=== PATIENT | female | born 1945 | race Caucasian/White ===

== ENCOUNTER → 2021-08-10 16:49 | Outpatient (CLI) | payer MEDICARE, OTHER, SELFPAY | PROVIDERS: Visit Provider Internal Medicine | DX: E03.9 Hypothyroidism, unspecified (principal) | CPT/HCPCS: 84443 ==

== ENCOUNTER → 2022-01-22 12:06 | Outpatient (CLI) | payer MEDICARE, OTHER, SELFPAY ==
[2022-01-22 13:24] LABS: Basophils % 0.6 % (0.1-2.0); Eosinophils # 0.2 K/mm3 (0.0-0.4); Eosinophils % 2.8 % (0.1-12.0); Hematocrit 37.1 % (37.0-47.0); Hemoglobin 11.8 g/dL (12.2-16.2); Lymphocytes # 0.9 K/mm3 (0.7-4.5); Lymphocytes % 15.4 % (10-50); Mean Corpuscular HGB Conc 31.8 g/dL (31.8-35.4); Mean Corpuscular Hemoglobin 29.8 pg (27.0-31.2); Mean Corpuscular Volume 93.6 fl (81-99); Mean Platelet Volume 8.4 fl (7.4-10.4); Monocytes # 0.4 K/mm3 (0.1-1.0); Monocytes % 6.6 % (1.7-9.3); Neutrophils # 4.4 K/mm3 (1.8-7.8); Neutrophils % 74.6 % (37.0-80.0); Platelet Count 136 K/mm3 (142-424); Red Blood Count 3.97 M/mm3 (4.20-5.40); Red Cell Distribution Width 16.1 % (11.5-17.5); White Blood Count 5.9 K/mm3 (4.8-10.8)
[2022-01-22 13:53] LABS: Alanine Aminotransferase 12 U/L (12-78); Albumin Level 3.7 g/dl (3.5-5.0); Albumin/Globulin Ratio 1.2 (1.1-1.8); Alkaline Phosphatase 90 U/L (38-126); Anion Gap 11.3 mEq/L (5-15); Aspartate Amino Transferase 24 U/L (14-36); Bilirubin,Total 0.4 mg/dl (0.2-1.3); Blood Urea Nitrogen 20 mg/dl (7-17); Carbon Dioxide 35 mmol/L (22.0-30.0); Chloride 100 mmol/L (98-107); Chol/HDL Ratio 4.2 (1-3.5); Cholesterol 151 mg/dl (140-200); Estimated Glomerular Filt Rate 61 ml/min (>60); GFR (African American) 73 ML/MIN (>60); Glucose 95 mg/dl (74-100); HDL Cholesterol 36 mg/dl (40-60); Potassium 4.3 mmoL/L (3.5-5.1); Sodium 142 mmol/L (136-145); Total Protein,Serum 6.7 g/dl (6.3-8.2); Triglycerides 128 mg/dl (30-150); VLDL Cholesterol 26 mg/dL (0-40)
[2022-01-22 14:23] LABS: Thyroid Stimulating Hormone 0.19 uIU/mL (0.465-4.68)
== END ==
PROVIDERS: PCP Internal Medicine; Visit Provider Internal Medicine
DX: I10 Essential (primary) hypertension (principal); E03.9 Hypothyroidism, unspecified; I27.20 Pulmonary hypertension, unspecified; E53.8 Deficiency of other specified B group vitamins
CPT/HCPCS: 80053; 80061; 84443; 85025

== ENCOUNTER → 2022-05-07 16:43 | Outpatient (CLI) | payer MEDICARE, OTHER, SELFPAY ==
[2022-05-07 17:24] LABS: Alanine Aminotransferase 10 U/L (12-78); Albumin Level 3.9 g/dl (3.5-5.0); Albumin/Globulin Ratio 1.2 (1.1-1.8); Alkaline Phosphatase 101 U/L (38-126); Anion Gap 15.4 mEq/L (5-15); Aspartate Amino Transferase 22 U/L (14-36); Bilirubin,Total 0.4 mg/dl (0.2-1.3); Blood Urea Nitrogen 25 mg/dl (7-17); Calcium 8.2 mg/dl (8.4-10.2); Carbon Dioxide 31 mmol/L (22.0-30.0); Chloride 99 mmol/L (98-107); Estimated Glomerular Filt Rate 44 ml/min (>60); GFR (African American) 53 ML/MIN (>60); Globulin 3.2 g/dL (1.3-3.2); Glucose 101 mg/dl (74-100); Potassium 4.4 mmoL/L (3.5-5.1); Sodium 141 mmol/L (136-145); Total Protein,Serum 7.1 g/dl (6.3-8.2)
[2022-05-07 17:35] LABS: Basophils % 0.6 % (0.1-2.0); Eosinophils # 0.3 K/mm3 (0.0-0.4); Hematocrit 37.8 % (37.0-47.0); Hemoglobin 11.7 g/dL (12.2-16.2); Lymphocytes # 1.5 K/mm3 (0.7-4.5); Lymphocytes % 20.8 % (10-50); Mean Corpuscular HGB Conc 31.1 g/dL (31.8-35.4); Mean Corpuscular Hemoglobin 29.4 pg (27.0-31.2); Mean Corpuscular Volume 94.8 fl (81-99); Mean Platelet Volume 8.1 fl (7.4-10.4); Monocytes # 0.4 K/mm3 (0.1-1.0); Monocytes % 5.4 % (1.7-9.3); Neutrophils # 4.8 K/mm3 (1.8-7.8); Neutrophils % 69.1 % (37.0-80.0); Platelet Count 154 K/mm3 (142-424); Red Blood Count 3.99 M/mm3 (4.20-5.40); Red Cell Distribution Width 16.4 % (11.5-17.5)
== END ==
PROVIDERS: PCP Internal Medicine; Visit Provider Internal Medicine
DX: R10.30 Lower abdominal pain, unspecified (principal)
CPT/HCPCS: 80053; 85025

== ENCOUNTER → 2022-05-27 13:53 | Outpatient (CLI) | payer MEDICARE, SELFPAY ==
--- NOTE | 2022-05-27 14:05 | CT_ITS ---
FINAL REPORT CLINICAL HISTORY: LOWER ABD PAIN COMPARISON: April 12, 2019 FINDINGS: CT ABDOMEN & PELVIS W/O CONTRAST Axial CT images of the abdomen and pelvis were obtained without intravenous contrast. Coronal reformatted images were also obtained.This study was performed with techniques to keep radiation doses as low as reasonably achievable (ALARA). Individualized dose reduction techniques using automated exposure control or adjustment of mA and/or kV according to the patient's size were employed. Abdomen: There are patchy ground-glass opacities in the lung bases which are slightly worse since the prior exam and may represent edema or alveolitis. There is mild scarring in the lung bases. There is no evidence of renal stone or hydronephrosis. There is a 9 mm increased attenuation mass in the lateral right kidney which does not appear to be a simple cyst, favor a complex cyst over neoplasm. There is an 11 mm mass the anterior right kidney which cannot be accurately characterized without contrast. This was present on the prior exam and is stable. There are postoperative changes from cholecystectomy. The liver and pancreas have an unremarkable, unenhanced appearance. There is splenomegaly measuring 16 cm in length. It previously measured 13 cm. No inflammatory process is identified. There are moderate vascular calcifications. Pelvis: The appendix is not visualized. There is sigmoid diverticulosis. There are postoperative changes from hysterectomy. There is mild urinary bladder prolapse which is stable. No ureteral stone or hydroureter is identified. IMPRESSION: No renal or ureteral stone, or hydronephrosis. No acute inflammatory process. Lateral and anterior right kidney masses as above. If indicated, renal mass protocol CT may be helpful. Reviewed, Interpreted and Dictated by Jonh Hill III, MD Transcribed by Shilpa Frazier Authenticated and [facility]
== END ==
PROVIDERS: PCP Internal Medicine; Visit Provider Internal Medicine
DX: R10.30 Lower abdominal pain, unspecified (principal)
CPT/HCPCS: 74176

== ENCOUNTER → 2022-06-06 10:47 | Outpatient (CLI) | payer MEDICARE, SELFPAY ==
[2022-06-06 13:10] LABS: Blood Urea Nitrogen 23 mg/dl (7-17); Estimated Glomerular Filt Rate 48 ml/min (>60); GFR (African American) 58 ML/MIN (>60)
== END ==
PROVIDERS: PCP Internal Medicine; Visit Provider Internal Medicine
DX: R10.30 Lower abdominal pain, unspecified (principal); N28.89 Other specified disorders of kidney and ureter
CPT/HCPCS: 36415; 82565; 84520

== ENCOUNTER → 2022-06-07 08:45 | Outpatient (CLI) | payer MEDICARE, SELFPAY ==
--- NOTE | 2022-06-07 09:06 | CT_ITS ---
FINAL REPORT TECHNIQUE: After the administration of intravenous contrast, axial images were obtained through the abdomen and pelvis by computed tomography. The study was performed with techniques to keep radiation dose as low as reasonably achievable, (ALARA). Individual dose reduction techniques using automated exposure control or adjustment of mA and/or kV according to the patient's size were employed. CLINICAL HISTORY: RENAL MASS,LOWER ABD PAIN COMPARISON: 05/27/2022 FINDINGS: Abdomen: The lung bases are clear. The liver is normal in size and attenuation. The patient is status post cholecystectomy. There is moderate extrahepatic biliary ductal dilatation. There are probable stones in the distal common bile duct. The spleen is enlarged. The adrenals are normal. The pancreas is unremarkable. There is a 9 mm mass in the anterior left kidney which is difficult to accurately characterize secondary to small size but appears to be a cyst. There is a 7 mm mass in the lateral right kidney which demonstrated a mean attenuation value of 50 Hounsfield units on the prior noncontrast CT. This does not show definite contrast enhancement, most consistent with a complex cyst (Bosniak category 2). The aorta is normal in caliber. There is no free fluid or adenopathy. Pelvis: The appendix is not identified. There is sigmoid diverticulosis. The patient is status post hysterectomy. The bladder is prolapsed. There is no free fluid or adenopathy. IMPRESSION: Moderate extrahepatic biliary ductal dilatation with probable stones in the distal common bile duct. Mass in the lateral right kidney is most likely a complex cyst. Splenomegaly. Reviewed, Interpreted and Dictated by Jonh Hill III, MD Transcribed by Rula Omalley Authenticated and [facility]
== END ==
PROVIDERS: PCP Internal Medicine; Visit Provider Internal Medicine
DX: N28.89 Other specified disorders of kidney and ureter (principal); R10.30 Lower abdominal pain, unspecified
CPT/HCPCS: 74177; Q9967

== ENCOUNTER → 2022-12-11 09:03 | Outpatient (CLI) | payer MEDICARE, SELFPAY ==
--- NOTE | 2022-12-11 09:06 | XR_ITS ---
FINAL REPORT TECHNIQUE: Bone densitometry calculations of the lumbar spine and left hip were obtained. CLINICAL HISTORY: .POST MENOPAUSAL FINDINGS: DEXA BONE DENSITY AXIAL SKELETON Using L1-4, the bone mineral density of the spine is 0.806 g/cm2, corresponding to T-score of -2.2. Using the left hip, the bone mineral density of the femoral neck is 0.474 g/cm2, corresponding to a T-score of -3.4. NOTE: T-score: Standard deviation compared with peak bone mass of young adult mean. *Following the recommendations of the International Society of Bone Densitometry, classification of hip BMD is based on the lower of two T-scores; total hip or femoral neck. IMPRESSION: Osteoporosis: Lowest T-score is at or below -2.5. This patient's T-score meets the World Health Organization criteria for osteoporosis. Reviewed, Interpreted and Dictated by Jonh Hill III, MD Transcribed by Shilpa Frazier Authenticated and [facility]
[2022-12-11 16:39] LABS: Basophils % 0.4 % (0.1-2.0); Eosinophils # 0.3 K/mm3 (0.0-0.4); Hematocrit 40.2 % (37.0-47.0); Hemoglobin 12.2 g/dL (12.2-16.2); Lymphocytes # 1.3 K/mm3 (0.7-4.5); Lymphocytes % 20.9 % (10-50); Mean Corpuscular HGB Conc 30.3 g/dL (31.8-35.4); Mean Corpuscular Hemoglobin 29.3 pg (27.0-31.2); Mean Corpuscular Volume 96.6 fl (81-99); Mean Platelet Volume 9.2 fl (7.4-10.4); Monocytes # 0.3 K/mm3 (0.1-1.0); Monocytes % 4.9 % (1.7-9.3); Neutrophils # 4.2 K/mm3 (1.8-7.8); Neutrophils % 68.8 % (37.0-80.0); Platelet Count 163 K/mm3 (142-424); Red Blood Count 4.16 M/mm3 (4.20-5.40); Red Cell Distribution Width 15.2 % (11.5-17.5); White Blood Count 6.2 K/mm3 (4.8-10.8)
[2022-12-11 16:52] LABS: Alanine Aminotransferase 11 U/L (12-78); Albumin Level 4.2 g/dl (3.5-5.0); Albumin/Globulin Ratio 1.4 (1.1-1.8); Alkaline Phosphatase 81 U/L (38-126); Anion Gap 13.5 mEq/L (5-15); Aspartate Amino Transferase 24 U/L (14-36); Bilirubin,Total 0.4 mg/dl (0.2-1.3); Blood Urea Nitrogen 38 mg/dl (7-17); Calcium 8.4 mg/dl (8.4-10.2); Carbon Dioxide 31 mmol/L (22.0-30.0); Chloride 102 mmol/L (98-107); Chol/HDL Ratio 4.5 (1-3.5); Cholesterol 157 mg/dl (140-200); Estimated Glomerular Filt Rate 36 ml/min (>60); GFR (African American) 44 ML/MIN (>60); Globulin 3.1 g/dL (1.3-3.2); Glucose 95 mg/dl (74-100); HDL Cholesterol 35 mg/dl (40-60); Potassium 4.5 mmoL/L (3.5-5.1); Sodium 142 mmol/L (136-145); Total Protein,Serum 7.3 g/dl (6.3-8.2); Triglycerides 147 mg/dl (30-150); VLDL Cholesterol 29 mg/dL (0-40)
[2022-12-11 17:03] LABS: Direct LDL Cholesterol 85.62 mg/dL (100-129)
[2022-12-11 17:21] LABS: Thyroid Stimulating Hormone 7.53 uIU/mL (0.465-4.68)
== END ==
PROVIDERS: PCP Internal Medicine; Visit Provider Internal Medicine
DX: Z78.0 Asymptomatic menopausal state (principal); I10 Essential (primary) hypertension; E03.9 Hypothyroidism, unspecified; E78.5 Hyperlipidemia, unspecified; Z95.1 Presence of aortocoronary bypass graft
CPT/HCPCS: 77080; 80053; 80061; 84443; 85025

== ENCOUNTER 2023-01-13 08:30 | Outpatient (CLI) | payer MEDICARE, SELFPAY ==
[2023-01-13 08:30] VITALS: BMI 30.4
[2023-01-13 09:07] LABS: Albumin Level 4.2 g/dl (3.5-5.0); Calcium 8.8 mg/dl (8.4-10.2); Creatinine Clearance Estimated 30 mL/min (50-200); Estimated Glomerular Filt Rate 27 ml/min (>60); GFR (African American) 33 ML/MIN (>60)
[2023-01-13 09:45] VITALS: BP 94/65; PULSE 58; RESP 20; TEMP 36.9; O2SAT 95
[2023-01-13 10:02] VITALS: BP 96/51; PULSE 59; RESP 20; O2SAT 95
== END 2023-01-13 10:05 | disposition home or self-care (01) ==
LOC: INF 08:32
PROVIDERS: PCP Internal Medicine; Visit Provider Internal Medicine
DX: M81.0 Age-related osteoporosis without current pathological fracture (principal)
CPT/HCPCS: 82040; 82310; 82565; 96365; J3489

== ENCOUNTER 2023-06-20 19:25 | Emergency (ER) | payer MEDICARE, SELFPAY ==
[2023-06-20] VITALS (9 sets, daily range): BP systolic 86–125; BP diastolic 40–69; PULSE 68–78; RESP 17–25; TEMP 36.7–37.4; O2SAT 82–97; BMI 31.1
--- NOTE | 2023-06-20 19:31 | ECG_ITS ---
APPROVED REPORT Exam: Resting ECG HR:68 bpm ECG Measurements Heart Rate 68 AXES WY 167 P 74 QRSd 96 QRS 61 QT 401 T 127 QTc 419 Conclusion SINUS RHYTHM INDETERMINATE AXIS ST DEVIATION AND MODERATE T-WAVE ABNORMALITY, CONSIDER ANTERIOR ISCHEMIA [-0.1+ mV T-WAVE IN V3/V4] ABNORMAL ECG UNCONFIRMED REPORT Electronically signed by : Jack Bedolla MD 06/21/2023 18:58:49
--- NOTE | 2023-06-20 19:47 | CT_ITS ---
PROCEDURE INFORMATION: Exam: CT Abdomen And Pelvis Without Contrast Exam date and time: 06/20/2023 8:24 PM Age: 78 years old Clinical indication: Abdominal pain; Additional info: Epigastric pain TECHNIQUE: Imaging protocol: Computed tomography of the abdomen and pelvis without contrast. Total images: 302 Radiation optimization: All CT scans at this facility use at least one of these dose optimization techniques: automated exposure control; mA and/or kV adjustment per patient size (includes targeted exams where dose is matched to clinical indication); or iterative reconstruction. REPORTING DATA: Count of CT and Cardiac NM exams in prior 12 months: This patient has received 0 known CTs and 0 known cardiac nuclear medicine studies in the 12 months prior to the current study. COMPARISON: CT ABDOMEN PELVIS W CON 06/07/2022 10:07 AM FINDINGS: Lungs: Bibasilar chronic fibrosis and emphysema. No airspace consolidation. Heart: Normal heart size. Status post ASD repair. Coronary arteries: Coronary artery calcifications. Diaphragm: Small hiatal hernia. Liver: Borderline hepatomegaly at 18.5 cm. Normal liver contour and attenuation. No discrete mass. Gallbladder and bile ducts: Status post cholecystectomy. Interval worsening moderate to severe intrahepatic and extrahepatic bile duct dilatation. Common bile duct measuring up to 2.2 cm in diameter. Heterogeneous intraluminal appearance of the common bile duct concerning for noncalcified choledocholithiasis. Pancreas: Normal. No ductal dilation. Spleen: Splenomegaly at 16 cm. Calcified splenic granuloma. Enlarging nonspecific 17 mm splenic mass. Adrenal glands: Normal. No mass. Kidneys and ureters: Subcentimeter hyperdensity right renal cortex consistent with hemorrhagic cyst. No nephrolithiasis or hydronephrosis. Small lower pole simple right renal cortical cyst. Unremarkable left kidney. No ureteral stones. Stomach and bowel: Unremarkable stomach and duodenum. No ileus or bowel obstruction. Small bowel appears within normal limits. Stool in the distal ileum compatible with chronic stasis. Mild sigmoid diverticulosis without acute diverticulitis. Rectocele. Appendix: Status post appendectomy. Intraperitoneal space: No ascites. No free air. Vasculature: Atherosclerotic abdominal aorta without aneurysm. Pelvic phleboliths. Lymph nodes: Unremarkable. No enlarged lymph nodes. Urinary bladder: Low lying bladder base/cystocele. Reproductive: Status post hysterectomy. No pelvic mass. Bones/joints: Status post median sternotomy. Osteopenia. Mild thoracolumbar scoliosis. Mild degenerative changes bilateral hips and SI joints. Severe degenerative changes lumbar spine including grade 1 anterior spondylolisthesis at L4-L5. Severe acquired spinal canal stenosis L4-L5. Soft tissues: Postsurgical scarring midline abdominal wall. Very tiny fat containing umbilical hernia. IMPRESSION: 1. Interval moderate to severe intrahepatic and extrahepatic bile duct dilatation. Suspect noncalcified choledocholithiasis. Recommend follow-up MRCP. 2. Borderline hepatomegaly. No hepatic mass. 3. Splenomegaly at 17 cm. 4. Enlarging 17 mm splenic mass, statistically a complex cyst or hemangioma. 5. Sigmoid diverticulosis without acute diverticulitis. 6. Pelvic floor prolapse with cystocele and rectocele. 7. Severe degenerative changes L4-L5 including grade 1 anterior spondylolisthesis and severe acquired spinal canal stenosis. 8. Additional chronic and incidental findings. COMMENTS: Consistent with the [employer]'s Incidental Findings Committee white paper (J Am Jo Radiol 2018): Any incidental renal lesion less than 1 cm or classified as too small to characterize, or any incide
--- NOTE | 2023-06-20 19:49 | HMH.EDGENADL ---
Discharge Plan Disposition Patient Disposition: Xfer Other Chief Complaint: Abdominal Pain Prescriptions Prescriptions: No Action levothyroxine 137 mcg tablet 137 mcg PO DAILY potassium chloride 20 mEq tablet,ER particles/crystals 20 meq PO DAILY furosemide 80 mg tablet 80 mg PO DAILY pantoprazole 40 mg tablet,delayed release (DR/EC) 40 mg PO DAILY metoprolol tartrate 50 mg tablet 50 mg PO DAILY quinapril 40 mg Tablet 40 mg PO DAILY sertraline 100 MG tablet 1 tab PO DAILY furosemide 80 MG tablet 1 tab PO DAILY amlodipine 10 MG tablet 1 tab PO DAILY allopurinol 300 MG tablet 300 mg PO DAILY oxycodone-acetaminophen 7.5-325 MG tablet 1 tab PO Q6 ropinirole 4 MG tablet 4 mg PO DAILY rosuvastatin 20 MG tablet 1 tab PO DAILY Referrals Follow up/Referrals: Bebo Perez MD [Primary Care Provider] - See instructions Clinical Impressions Clinical Impression: Choledocholithiasis, Acute epigastric pain, Nausea & vomiting Instructions Patient Instructions: DI for Acute Abdominal Pain Discharge ED Provider: Nupur Vargas General Adult HPI General Chief complaint: Abdominal Pain Stated complaint: N/V Time Seen by Provider: 06/20/23 19:37 History of Present Illness HPI narrative: Patient is a 78-year-old female presented today with epigastric discomfort and nausea vomiting. Denies any hematemesis or bloody stools. Has had decreased bowel movements but is passing some flatus. She has had a cholecystectomy in the past sounds like she had retained stones following that this was over a year ago. No fevers or chills cough chest pain shortness of breath etc. Does not describe this as being postprandial any blood in her stool etc. Related Data Home Medications Medication Instructions Recorded Confirmed allopurinol 300 mg tablet 300 mg PO DAILY unknown 04/12/19 06/20/23 amlodipine 10 mg tablet 1 tab PO DAILY Hypertension 04/12/19 06/20/23 furosemide 80 mg tablet 1 tab PO DAILY Edema 04/12/19 06/20/23 oxycodone-acetaminophen 7.5 mg-325 1 tab PO Q6 Pain 04/12/19 06/20/23 mg tablet ropinirole 4 mg tablet 4 mg PO DAILY unknown 04/12/19 06/20/23 rosuvastatin 20 mg tablet 1 tab PO DAILY Cholesterol 04/12/19 06/20/23 sertraline 100 mg tablet 1 tab PO DAILY Depression 04/12/19 06/20/23 furosemide 80 mg tablet 80 mg PO DAILY 06/20/23 06/20/23 levothyroxine 137 mcg tablet 137 mcg PO DAILY 06/20/23 06/20/23 metoprolol tartrate 50 mg tablet 50 mg PO DAILY 06/20/23 06/20/23 pantoprazole 40 mg tablet,delayed 40 mg PO DAILY 06/20/23 06/20/23 release potassium chloride 20 mEq 20 meq PO DAILY 06/20/23 06/20/23 tablet,extended release(part/cryst) quinapril 40 mg tablet 40 mg PO DAILY 06/20/23 06/20/23 Allergies Allergy/AdvReac Type Severity Reaction Status Date / Time iodine [IODINE] Allergy Unknown Verified 04/12/19 14:21 morphine [MORPHINE] Allergy Unknown RASH/VOMITI Verified 04/12/19 14:21 NG sulfamethoxazole Allergy Unknown VOMITING Verified 04/12/19 14:21 [From BACTRIM] trimethoprim [From BACTRIM] Allergy Unknown VOMITING Verified 04/12/19 14:21 shellfish derived AdvReac Severe throat Verified 04/12/19 14:21 [From SHELLFISH (FOOD/DRUG)] swells, cant breathe From SHELLFISH (FOOD/DRUG) AdvReac Severe throat Uncoded 08/12/17 14:26 swells, cant breathe PFSH PFSH Disclaimer: The information contained in this section may have been updated after the patient was seen, as this information can be updated by other users. Medical History (Updated 06/20/23 @ 21:56 by Nupur Vargas MD) Cardiomegaly Chronic kidney disease (CKD) Enlarged liver Hypertension Pulmonary hypertension Spleen enlargement Surgical History (Updated 06/20/23 @ 21:40 by Danyell Grijalva RN) S/P triple vessel bypass Social History Smoking Status: Never smoker alcohol intake: never current occupational s
[2023-06-20 19:53] LABS: Basophils % 0.2 % (0.1-2.0); Eosinophils # 0.3 K/mm3 (0.0-0.4); Eosinophils % 4.1 % (0.1-12.0); Hematocrit 38.3 % (37.0-47.0); Hemoglobin 12.4 g/dL (12.2-16.2); Lymphocytes # 0.7 K/mm3 (0.7-4.5); Lymphocytes % 8.3 % (10-50); Mean Corpuscular HGB Conc 32.4 g/dL (31.8-35.4); Mean Corpuscular Hemoglobin 31.8 pg (27.0-31.2); Mean Corpuscular Volume 98.3 fl (81-99); Mean Platelet Volume 8.4 fl (7.4-10.4); Monocytes # 0.3 K/mm3 (0.1-1.0); Monocytes % 3.8 % (1.7-9.3); Neutrophils # 6.6 K/mm3 (1.8-7.8); Neutrophils % 83.6 % (37.0-80.0); Platelet Count 171 K/mm3 (142-424); Red Cell Distribution Width 14.7 % (11.5-17.5); White Blood Count 7.8 K/mm3 (4.8-10.8)
[2023-06-20 19:57] LABS: Chloride 99 mmol/L (98-107); Potassium 3.9 mmoL/L (3.5-5.1); Sodium 145 mmol/L (136-145)
[2023-06-20 20:00] LABS: Alanine Aminotransferase 302 U/L (12-78); Albumin Level 4.6 g/dl (3.5-5.0); Alkaline Phosphatase 323 U/L (38-126); Anion Gap 11.9 mEq/L (5-15); Aspartate Amino Transferase 351 U/L (14-36); Bilirubin,Total 2.2 mg/dl (0.2-1.3); Blood Urea Nitrogen 21 mg/dl (7-17); Calcium 9.1 mg/dl (8.4-10.2); Carbon Dioxide 38 mmol/L (22.0-30.0); Creatinine Clearance Estimated 38 mL/min (50-200); Estimated Glomerular Filt Rate 36 ml/min (>60); GFR (African American) 44 ML/MIN (>60); Globulin 4.4 g/dL (1.3-3.2); Glucose 183 mg/dl (74-100); Lipase 183 U/L (23-300)
--- NOTE | 2023-06-20 20:28 | PC.NURSE ---
Respiratory at bedside applying humidity and titrating o2 at this time.
[2023-06-20 20:29] LABS: Troponin I < 0.01 ng/ml (0.00-0.034)
--- NOTE | 2023-06-20 21:01 | PC.NURSE ---
Phone call made to [facility] to speak with GI doc for Dr. Vargas.
--- NOTE | 2023-06-20 21:31 | PC.NURSE ---
Spoke with [facility] about tranfer to their facility for GI. They advised they will talk with hospitalist group and call back
--- NOTE | 2023-06-20 21:37 | PC.NURSE ---
Dr Vargas on phone with [facility]
--- NOTE | 2023-06-20 21:38 | PC.NURSE ---
call placed for disk from [facility], spoke with jay
--- NOTE | 2023-06-20 21:43 | PC.NURSE ---
received call back from hospitalist andreina early NP.
--- NOTE | 2023-06-20 22:31 | PC.NURSE ---
[facility] contacted for transport
--- NOTE | 2023-06-20 22:40 | PC.NURSE ---
Nurse to nurse report to Brissa BETANCUR for [address] room [id number]
--- NOTE | 2023-06-20 23:07 | PC.NURSE ---
[facility] contacted an stated that the bed has been changed to 3C room 3304 at this time. Nurse to nurse report called to Aure BETANCUR. Patient is awaiting transport.
== END 2023-06-21 00:11 | disposition other institution (70) ==
PROVIDERS: Emergency Provider Student in an Organized Health Care Education/Training Program; PCP Internal Medicine
DX: R10.13 Epigastric pain (principal); K80.50 Calculus of bile duct without cholangitis or cholecystitis without obstruction; R11.2 Nausea with vomiting, unspecified; N18.9 Chronic kidney disease, unspecified; I27.20 Pulmonary hypertension, unspecified; I51.7 Cardiomegaly; I12.9 Hypertensive chronic kidney disease with stage 1 through stage 4 chronic kidney disease, or unspecified chronic kidney disease
CPT/HCPCS: 74176; 80053; 83690; 84484; 85025; 93005; 96361; 96374; 96375; 99285; J2405

== ENCOUNTER → 2023-08-05 12:37 | Outpatient (CLI) | payer MEDICARE, SELFPAY ==
[2023-08-05 13:39] LABS: Basophils % 0.4 % (0.1-2.0); Eosinophils # 0.2 K/mm3 (0.0-0.4); Eosinophils % 4.2 % (0.1-12.0); Hematocrit 36.1 % (37.0-47.0); Hemoglobin 11.9 g/dL (12.2-16.2); Lymphocytes % 20.2 % (10-50); Mean Corpuscular HGB Conc 32.9 g/dL (31.8-35.4); Mean Corpuscular Volume 94.4 fl (81-99); Mean Platelet Volume 8.5 fl (7.4-10.4); Monocytes # 0.2 K/mm3 (0.1-1.0); Monocytes % 4.5 % (1.7-9.3); Neutrophils # 3.6 K/mm3 (1.8-7.8); Neutrophils % 70.7 % (37.0-80.0); Platelet Count 148 K/mm3 (142-424); Red Blood Count 3.83 M/mm3 (4.20-5.40); Red Cell Distribution Width 15.6 % (11.5-17.5)
[2023-08-05 14:45] LABS: Alanine Aminotransferase 14 U/L (12-78); Albumin Level 4.6 g/dl (3.5-5.0); Albumin/Globulin Ratio 1.3 (1.1-1.8); Alkaline Phosphatase 64 U/L (38-126); Aspartate Amino Transferase 31 U/L (14-36); Bilirubin,Total 0.5 mg/dl (0.2-1.3); Blood Urea Nitrogen 30 mg/dl (7-17); Calcium 8.8 mg/dl (8.4-10.2); Carbon Dioxide 34 mmol/L (22.0-30.0); Chloride 101 mmol/L (98-107); Cholesterol 170 mg/dl (140-200); Estimated Glomerular Filt Rate 36 ml/min (>60); GFR (African American) 44 ML/MIN (>60); Globulin 3.6 g/dL (1.3-3.2); Glucose 89 mg/dl (74-100); Total Protein,Serum 8.2 g/dl (6.3-8.2); Triglycerides 131 mg/dl (30-150); VLDL Cholesterol 26 mg/dL (0-40)
[2023-08-05 14:47] LABS: Anion Gap 9.5 mEq/L (5-15); HDL Cholesterol 43 mg/dl (40-60); Potassium 4.5 mmoL/L (3.5-5.1); Sodium 140 mmol/L (136-145)
[2023-08-05 15:07] LABS: Direct LDL Cholesterol 96.52 mg/dL (100-129)
== END ==
PROVIDERS: PCP Internal Medicine; Visit Provider Internal Medicine
DX: I11.0 Hypertensive heart disease with heart failure (principal); I27.20 Pulmonary hypertension, unspecified; E03.9 Hypothyroidism, unspecified; D64.9 Anemia, unspecified; I25.10 Atherosclerotic heart disease of native coronary artery without angina pectoris; M17.0 Bilateral primary osteoarthritis of knee; Z95.1 Presence of aortocoronary bypass graft; I50.32 Chronic diastolic (congestive) heart failure
CPT/HCPCS: 80053; 80061; 84443; 85025